=== PATIENT | female | born 1970 | race Caucasian/White ===

== ENCOUNTER 2016-11-08 13:08 | Emergency (ER) | payer BC ==
[~2016-11-08] VITALS: Ht 162.6 cm; Wt 63.6 kg
[2016-11-08 13:24] VITALS: Ht 162.6 cm; Wt 63.6 kg
--- NOTE | 2016-11-08 13:39 | ERD ---
ER Documentation Chief Complaint Date/Time DATE: 11/08/16 TIME: 13:37 Chief Complaint CODE GREEN:VOMITED AND FELT DIZZY AWAITING FAMILY IN SURGICAL RECOVERY AREA HPI 46-year-old previously healthy female presenting after near syncopal episode. She was in the PACU today with her daughter after her daughter had an adenoidectomy. Her daughter was crying and seemed to be in distress. The patient suddenly felt ill with symptoms including lightheadedness, nausea, and tingling all over her body. She denies any associated chest pain or shortness of breath. She did not completely lose consciousness. She sat down in a chair. As soon as she was brought to the ED and laid down she felt much better. She did have one episode of vomiting. She has no complaints. She feels back to her normal self but she still feels somewhat shaky. ROS All systems reviewed and are negative except as per history of present illness. Medications Home Meds No Active Prescriptions or Reported Meds Allergies Allergies: Coded Allergies: No Known Allergy (Unverified , 11/08/16) PMhx/Soc Medical and Surgical Hx: pt denies Medical Hx, pt denies Surgical Hx Hx Alcohol Use: No Hx Substance Use: No Hx Tobacco Use: No FmHx Family History: No diabetes Physical Exam Vitals Vital Signs Date Time Temp Pulse Resp B/P Pulse Ox O2 Delivery O2 Flow Rate FiO2 11/08/16 13:54 77 18 116/57 100 Room Air 11/08/16 13:24 97.5 78 16 101/60 100 Physical Exam Const: Well-appearing, no significant distress, somewhat tearful Head: Atraumatic Eyes: Normal Conjunctiva, PERRLA, EOMI ENT: Normal External Ears, Nose and Mouth. Neck: Full range of motion..~ No meningismus. Resp: Clear to auscultation bilaterally Cardio: Regular rate and rhythm, no murmurs. 2+ distal pulses. Abd: Soft, non tender, non distended. Normal bowel sounds Skin: No petechiae or rashes Back: No midline or flank tenderness Ext: No cyanosis, or edema Neur: Awake and alert, oriented 3, cranial nerves intact, strength and sensations intact in all 4 extremities, normal gait and balance Psych: Normal Mood and Affect Procedures/MDM EKG: Rate/Rhythm: Normal Sinus Rhythm QRS, ST, T-waves: No changes consistent w/ acute ischemia Impression: No evidence of ischemia or arrhythmia Urine negative The patients vitals are within normal limits and labs are unremarkable. The ECG did not show any concerning abnormalities. I have a low suspicion for an arrhythmia, acute coronary syndrome, PE or a CVA or intracranial hemorrhage. Etiology for near syncope is likely situational, related to her reaction to her daughter being in distress. Patient's symptoms have stabilized while in the department and are suitable for outpatient follow up. I advised follow up with primary care physician in 1-2 days. Return precautions were discussed at bedside. Departure Diagnosis: Primary Impression: Vasovagal reaction Condition: Stable EKARLENE HSIEH MD Nov 08, 2016 13:39
[2016-11-08 13:54] VITALS: BP 116/57; PULSE 77; RESP 18
== END 2016-11-08 14:05 | disposition home or self-care (01) ==
LOC: E/R 13:08
DX: R55 Syncope and collapse (principal)
CPT/HCPCS: 93005; Z7502